=== PATIENT | female | born 1990 | race Caucasian/White ===

== ENCOUNTER 2018-01-23 01:09 | Inpatient (IN) | payer MEDICAID, OTHER ==
[2018-01-23 01:45] VITALS: BMI 30.7
[2018-01-23] MEDS ORDERED: Ondansetron HCl/PF 4 MG/2 ML Vial IVP PRN (02:07)
[2018-01-23] MEDS ORDERED: Promethazine HCl 25 MG/ML VIAL IM PRN (02:07)
[2018-01-23] MEDS ORDERED: Zolpidem Tartrate 5 MG TAB PO PRN (02:07)
[2018-01-23] MEDS ORDERED: Calcium Gluc 4.6 MEQ/10 ML (100 MG/ML) SLOW IVP PRN (02:14)
[2018-01-23] MEDS ORDERED: Magnesium Sulfate 20 GM/WATER 500 ML BAG IVPB SCH (02:15)
[2018-01-23] MEDS ORDERED: Lactated Ringer's 1,000 ML IV SCH (02:15)
--- NOTE | 2018-01-23 02:21 | PDOC.LDHP ---
Labor and Delivery H&P Chief complaint: contractions HPI: 27 yo WF EDC= 03/10/18 c/o UCs since 9 pm, denies bledding or SROM Due date: 03/10/18 Dating criteria: last menstrual period, first trimester ultrasound Grav: 5 Para: 4 Current complications: other (cholestasis, Factor 5, Factor 2) Current medications: pre-jeane vitamins, iron, other (Lovenox 40 mg qd) Previous surgical history: none Allergies/Adverse Reactions: Allergies Allergy/AdvReac Type Severity Reaction Status Date / Time No Known Drug Allergies Allergy Verified 01/23/18 01:30 Social history: none - Physical Exam Vital signs reviewed and normal: yes General: NAD Heart: RRR Lungs: CTAB Abdomen: gravid Extremeties: trace edema FHT: variability present [employer] contractions every: q 2-3 mins - Vaginal Exam cm dilated: 2 Effacement: 50% Station: -2 - OB Labs Blood type: unknown RH: unknown Antibody Screen: unknown HIV: unknown RPR: unknown HEPSAg: unknown 1 hour GCT: unknown 3 hour GTT: unknown GBS: unknown - Assessment 33 weeks PTL breech Factor 5 Leiden cholestasis - Plan Plan: admit to L&D, magnesium for neuroprotection (steroids for FLM)
[2018-01-23] MEDS: Dextrose 5%-Lactated Ringers 1,000 ML IV SCH ×2 (02:30→16:19)
[2018-01-23 02:32] LABS: Hemoglobin 9.7 g/dL (12.0-16.0); Mean Corpuscular Hemoglobin 26.6 pg (27.0-31.0); Mean Corpuscular Volume 80.6 fl (81.0-99.0); Mean Platelet Volume 7.5 fL (7.4-10.4); Platelet Count 234 thou/uL (130-400); RBC Distribution Width 14.3 % (11.5-14.5); Red Blood Cell (RBC) Count 3.66 mill/uL (4.20-5.40)
[2018-01-23] MEDS: Magnesium Sulfate 20 gm/500 ml 20 GM/500 ML BAG IVPB SCH ×3 (02:32→21:33)
[2018-01-23] MEDS: Betamet Acet/Betamet Na Ph 30 MG/5 ML VIAL IM SCH (02:35)
[2018-01-23 02:51] LABS: ALT (SGPT) 18 U/L (8-55); AST (SGOT) 14 U/L (5-34); Albumin 3.5 g/dL (3.5-5.0); Alkaline Phosphatase 224 U/L (40-150); Anion Gap 15 mmol/L (10-20); BUN (Urea Nitrogen) 7 mg/dL (7.0-18.7); Bilirubin, Total 0.2 mg/dL (0.2-1.2); Calc. Creatinine Clearance 171 mL/min (70-130); Calcium 9.4 mg/dL (7.8-10.44); Carbon Dioxide 20 mmol/L (22-29); Chloride 106 mmol/L (98-107); Estimated GFR-MDRD Greater than 90; Globulin 3.3 g/dL (2.4-3.5); Glucose 94 mg/dL (70-105); Potassium 3.5 mmol/L (3.5-5.1); Protein, Total 6.8 g/dL (6.0-8.3); Sodium 137 mmol/L (136-145)
[2018-01-23 02:54] LABS: Bilirubin Negative (Negative); Blood, Urine Negative (Negative); Clarity CLOUDY (Clear); Glucose, Urine (Dipstick) Negative (Negative); Leukocyte Large (Negative); Nitrite Negative (Negative); Protein, Urine (Dipstick) Negative (Neg-Trace); Specific Gravity, Urine 1.012 (1.002-1.036); Urobilinogen 0.2 mg/dL (0.2-1.0)
[2018-01-23 02:56] LABS: Bacteria/HPF 4+ HPF (None Seen); Hyaline Casts/LPF 7-10 HYALINE CAST LPF (0-3 Hyaline); Pathc Cast-AUWi Flag 0.94 (0-2.49); RBC/HPF None Seen HPF (0-3); Squamous Epithelial 0-3 HPF (0-3); WBC/HPF 21-50 HPF (0-3)
[2018-01-23 03:05] LABS: Amphetamine Not Detected (NotDetected); Barbiturates Screen Not Detected (NotDetected); Benzodiazepine Screen Not Detected (NotDetected); Cocaine Metabolite Screen Not Detected (NotDetected); Medtox Control Line Valid? VALID (VALID); Medtox Reader # READER 4; Methadone Not Detected (NotDetected); Methamphetamine Not Detected (NotDetected); Opiate Screen Not Detected (NotDetected); Oxycodone Screen Not Detected (NotDetected); Phencyclidine (PCP) Not Detected (NotDetected); THC/Cannabinoid Screen Not Detected (NotDetected); Tricyclic Screen Not Detected (NotDetected)
[2018-01-23 03:11] LABS: HBSAg Index 0.43 S/CO (0-0.99); HIV (1/2) Antibody/Antigen Non-Reactive (NonReactive); HIV 1/2 INDEX 0.24 S/CO (<1.00); Hep B Surf Ag Non-Reactive S/CO (NonReactive)
[2018-01-23] MEDS ORDERED: CEFAZOLIN 1 GM in Sodium Chloride 0.9% 100 ML IVPB SCH (03:30)
[2018-01-23 04:00] LABS: Syphilis Antibody Nonreactive (Nonreactive); Syphilis Antibody Index 0.07 S/CO (<1.00 Non-Reactive)
[2018-01-23] MEDS ORDERED: CEFAZOLIN 1 GM, Syringe 2.5 ML in Sterile Water 7.5 ML SLOW IVP SCH (04:00)
--- NOTE | 2018-01-23 06:12 | PDOC.LDPN ---
Labor & Delivery Progress Note - Objective Vital signs reviewed and normal: yes General: resting FHT: category 1, variability present [place] contractions every: UCs seen q 2-6 mins - Assessment (1) labor Code(s): O60.00 - LABOR WITHOUT DELIVERY, UNSPECIFIED TRIMESTER Current Visit: Yes Status: Acute (2) Breech presentat-unspec Code(s): O32.1XX0 - MATERNAL CARE FOR BREECH PRESENTATION, UNSP Current Visit : Yes Status: Acute (3) UTI (urinary tract infection) Current Visit: Yes Status: Acute -: Continue Mgso4 1st dose steroids given Cont. Ancef for UTI, urine culture pending
--- NOTE | 2018-01-23 08:41 | ULT ---
PRELIMINARY REPORT/[facility]/EMERGENCY AFTER HOURS PROCEDURE: EXAM: US After First Trimester, Transabdominal EXAM DATE/TIME: 01/23/2018 2:34 AM CLINICAL HISTORY: 27 years old, female; Pain; complicated by abdominal or pelvic pain; Lower; Third trimester ; Gestational age or lmp: 34w5d; ; Patient HX: Pre-term labor TECHNIQUE: Real-time transabdominal obstetrical ultrasound of the maternal pelvis and a second or third trimeste r with image documentation. COMPARISON: No relevant prior studies available. FINDINGS: Fetus: Single Heart rate: 135 bpm Presentation: Breech Placenta: Posterior. No abruption. Amniotic fluid: Normal volume. Anatomy: Visualized anatomy is normal. BIOMETRICS Gestational age by US: GA by US: 34 weeks, 5 days EFW: 2242 grams BPD: 8.6 cm HC: 32.5 cm AC: 30 cm FL: 6.1 cm MATERNAL: Uterus: Unremarkable. No myometrial mass. Cervix: 2.2 cm as visualized. Closed. Free fluid: No free fluid. IMPRESSION: 1. Single viable intrauterine with EGA 34 weeks, 5 days by current US. 2. No acute findings. Thank you for allowing us to participate in the care of your patient. Dictated and Authenticated by: Kylee Ruvalcaba MD 01/23/2018 3:54 AM Central Time ([place] & [place]) FINAL REPORT EMERGENCY AFTER HOURS LIMITED OB ULTRASOUND: Date: 01/23/18 FINDINGS/IMPRESSION: I agree with the preliminary report given by Dr. Kylee Ruvalcaba of [facility]. POS: [facility]
[2018-01-23] MEDS ORDERED: FLU VACC QS2017-18 36 mo. & older 0.5 ML SYRINGE IM ONE (09:00)
--- NOTE | 2018-01-23 09:55 | PDOC.LDPN ---
Labor & Delivery Progress Note - Subjective Subjective: painful contractions (continued same frequency and intensity despite mag, no vb lof. good fm) - Objective Vital signs reviewed and normal: yes General: NAD Uterine fundus: non tender FHT: category 1 [place] contractions every: 3-5min - Assessment (1) Breech presentat-unspec Code(s): O32.1XX0 - MATERNAL CARE FOR BREECH PRESENTATION, UNSP Current Visit : Yes Status: Acute (2) labor Code(s): O60.00 - LABOR WITHOUT DELIVERY, UNSPECIFIED TRIMESTER Current Visit: Yes Status: Acute Qualifiers: labor trimester: third trimester labor delivery status: without delivery Qualified Code(s): O60.03 - labor without delivery, third trimester -: PTL at 33w3d, on SVE change overnight despite continued contractions. Cont Mag until steroids on board then will not be for retocolysis. Probable UTI, on Ancef, Ucx pending. 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 SCDs. Anemia- rx Fe. Cont current care.
[2018-01-23] MEDS: Acetaminophen 325 MG TAB PO PRN ×2 (12:32→23:59)
[2018-01-23] MEDS: Ferrous Sulfate 325 MG TAB PO SCH (19:58)
[2018-01-24] MEDS: Betamet Acet/Betamet Na Ph 30 MG/5 ML VIAL IM SCH (02:00)
--- NOTE | 2018-01-24 08:02 | PDOC.LDPN ---
Labor & Delivery Progress Note - Subjective Subjective: comfortable - Objective Vital signs reviewed and normal: yes General: NAD Uterine fundus: non tender [place] contractions every: 1/hr - Assessment (1) Breech presentat-unspec Code(s): O32.1XX0 - MATERNAL CARE FOR BREECH PRESENTATION, UNSP Current Visit : Yes Status: Acute (2) labor Code(s): O60.00 - LABOR WITHOUT DELIVERY, UNSPECIFIED TRIMESTER Current Visit: Yes Status: Acute Qualifiers: labor trimester: third trimester labor delivery status: without delivery Qualified Code(s): O60.03 - labor without delivery, third trimester -: 27yo at 33w4d with APTL at 2cm. On mag for tocolysis, ctx have stopped. DC Mag and HLIV. s/p BMZ x 2 UTI- presumed based on UA, on ancef, will cont until DC, Ucx pending. FHT Cat 1, ok for q shift monitoring and regular diet. Cholestasis- cont ursodiol, repeat bile acids pending. Heterozygote for prothrombin and factor V- Hold ppx lovenox, apply SCDs. Transfer to floor if stable later today, likely home tomorrow if asx.
[2018-01-24] MEDS: Ferrous Sulfate 325 MG TAB PO SCH ×2 (09:43→22:02)
[2018-01-24] MEDS ORDERED: Prenatal Vitamin 1 TAB PO SCH (11:14)
[2018-01-24 19:39] VITALS: TEMP 98.1
--- NOTE | 2018-01-25 06:40 | PDOC.LDPN ---
Labor & Delivery Progress Note - Subjective Subjective: comfortable - Objective Vital signs reviewed and normal: yes General: NAD [place] contractions every: no UCS seen - Assessment (1) labor Code(s): O60.00 - LABOR WITHOUT DELIVERY, UNSPECIFIED TRIMESTER Current Visit: Yes Status: Acute Qualifiers: labor trimester: third trimester labor delivery status: without delivery Qualified Code(s): O60.03 - labor without delivery, third trimester (2) Breech presentat-unspec Code(s): O32.1XX0 - MATERNAL CARE FOR BREECH PRESENTATION, UNSP Current Visit : Yes Status: Acute (3) UTI (urinary tract infection) Current Visit: Yes Status: Acute -: DC Ancef. Start Keflex 500 mg po QID x7 days. Precautions reviewed in detail.. Restart Lovenox at home. F/u with Dr. Carbone next week.
[2018-01-25 09:16] VITALS: BP 126/80
[2018-01-25] MEDS ORDERED: Cephalexin 250 MG CAP PO SCH (12:00)
--- NOTE | 2018-01-25 13:20 | DIS ---
DATE OF ADMISSION: 01/23/2018 DATE OF DISCHARGE: 01/25/2018 ADMITTING PHYSICIAN: Abdulaziz Chandler M.D. ATTENDING PHYSICIAN: Erin Carbone M.D. BRIEF HISTORY HOSPITAL COURSE: Ms. Michelle is a 27-year-old white now at 33-1/2 weeks who pres ented on 01/23/2018 complaining of regular uterine contractions. She had a complicated hist ory of cholestasis and factor V Leiden deficiency for which she was on the Lovenox. On admission, manny walls was found to be huseyin regularly and her cervix was 2 cm dilated, 50% effaced. Decision was m solo to proceed with magnesium tocolysis and she was also given 2 doses of steroids. Her urine at the time of admission was dirty and she was begun on Ancef. She continued to contract and made no cervical change. She was continued on magnesium for the course of her 2 doses of steroids. Slowly, she stopped huseyin and her magnesium was stopped. Her leanna roid dose was completed and her urine culture returned showing Klebsiella, which was sensitive to all agents. Her Ancef was stopped and the decision was made to proceed with discharge on Keflex 500 mg p.o. 4 times a day. She was asked to follow up with Dr. Carbone in 1 week and she could restart her Lovenox. She voiced understanding of her discharge instructions and was sent home in good condition. ADMITTING DIAGNOSES: 1. A 33-week intrauterine . 2. labor. 3. Urinary tract infection. DISCHARGE DIAGNOSES: 1. A 33-week intrauterine . 2. labor. 3. Urinary tract infection.
== END 2018-01-25 08:50 | disposition home health service (06) | DRG 778 ==
LOC: L&D/OP 01:09 → L&D 02:19
PROVIDERS: ADMIT Student in an Organized Health Care Education/Training Program; ATTEND Student in an Organized Health Care Education/Training Program
DX: O60.03 Preterm labor without delivery, third trimester (principal); D68.51 Activated protein C resistance; K83.1 Obstruction of bile duct; O23.43 Unspecified infection of urinary tract in pregnancy, third trimester; O99.113 Other diseases of the blood and blood-forming organs and certain disorders involving the immune mechanism complicating pregnancy, third trimester; O26.613 Liver and biliary tract disorders in pregnancy, third trimester; O32.1XX0 Maternal care for breech presentation, not applicable or unspecified; O99.013 Anemia complicating pregnancy, third trimester; D64.9 Anemia, unspecified; Z3A.33 33 weeks gestation of pregnancy
CPT/HCPCS: 36415; 51701; 51702; 76815; 80053; 80306; 81001; 82239; 85027; 86762; 86780; 86850; 86870; 86900; 86901; 87077; 87081; 87086; 87186; 87340; 87389; 99285; A4216; J0690; J0702; J3475

== ENCOUNTER 2022-08-23 03:26 | Inpatient (IN) | payer SELFPAY ==
[2022-08-23] MEDS ORDERED: Acetaminophen 325 MG TAB PO PRN (05:15)
[2022-08-23] MEDS ORDERED: Ondansetron ODT 4 MG TAB SL PRN (05:15)
[2022-08-23 05:43] VITALS: BMI 33.6
[2022-08-23] MEDS ORDERED: Acetaminophen 650 MG Suppository PR PRN (06:02)
[2022-08-23] MEDS: Sodium Chloride 0.9% 1,000 ML IV SCH ×2 (06:21→08:17)
[2022-08-23] MEDS ORDERED: Piperacillin/Tazobactam 3.375 GM in Sodium Chloride 0.9% 100 ML IVPB SCH (08:00)
[2022-08-23] MEDS: Ondansetron PF 4 MG/2 ML Vial IVP PRN ×2 (08:21→15:21)
[2022-08-23] MEDS: Morphine 4 MG/ML VIAL SLOW IVP PRN ×2 (08:21→15:21)
[2022-08-23] MEDS ORDERED: Magnevist 469MG/ML 20 ML VIAL ONE (10:24)
[2022-08-23] MEDS: Piperacillin/Tazobactam 3.375 GM in Sodium Chloride 0.9% 100 ML IVPB SCH ×2 (11:47→22:48)
[2022-08-23 15:38] LABS: SARS-CoV-2 NAA Rapid Test Not Detected (NotDetected)
[2022-08-23 16:56] LABS: Mean Corpuscular HGB CONC 32.1 g/dL (32.0-36.0); Mean Corpuscular Hemoglobin 26.9 pg (27.0-31.0); Mean Corpuscular Volume 83.7 fL (78.0-98.0); Mean Platelet Volume 8.5 fL (7.4-10.4); Platelet Count 164 thou/uL (130-400); RBC Distribution Width 12.6 % (11.5-14.5); Red Blood Cell (RBC) Count 3.73 mill/uL (4.20-5.40)
[2022-08-23 17:08] LABS: ALT (SGPT) 25 U/L (8-55); AST (SGOT) 20 U/L (5-34); Albumin 3.5 g/dL (3.5-5.0); Alkaline Phosphatase 72 U/L (40-110); Anion Gap 13 mmol/L (10-20); BUN (Urea Nitrogen) 20 mg/dL (7.0-18.7); Bilirubin, Total 0.9 mg/dL (0.2-1.2); Calc. Creatinine Clearance 46 mL/min (70-130); Calcium 7.6 mg/dL (7.8-10.44); Carbon Dioxide 21 mmol/L (22-29); Chloride 109 mmol/L (98-107); Estimated GFR 28; Globulin 2.7 g/dL (2.4-3.5); Glucose 123 mg/dL (70-105); Magnesium 1.2 mg/dL (1.6-2.6); Phosphorus 3.9 mg/dL (2.3-4.7); Potassium 3.8 mmol/L (3.5-5.1); Protein, Total 6.2 g/dL (6.0-8.3); Sodium 139 mmol/L (136-145)
[2022-08-23 17:24] LABS: Band 26 % (5-11); Eosinophils 1 % (0-10); Hypochromia SLIGHT = 6-15 cells (100X) (0-5/hpf); Lymphocytes 3 % (21-51); MDiff Complete? YES; Metamyelocyte 12 % (0-0); Monocytes 1 % (0-10); Myelocyte 1 % (0-0); Neutrophil 56 % (42-75); Platelet Morphology Comment Appears Adequate; Polychromasia SLIGHT = 2-3 cells (100X) (0-2/hpf); Vacuoles SLIGHT
[2022-08-23] MEDS ORDERED: B & O ONE (18:45)
[2022-08-23] MEDS ORDERED: Iopamidol 15 ML ONE (18:45)
[2022-08-23] MEDS ORDERED: fentaNYL Citrate/PF 100 MCG/2 ML SYRINGE ONE (18:48)
[2022-08-23] MEDS ORDERED: Midazolam HCl 2 mg/2 ml Vial ONE (18:48)
[2022-08-23] MEDS ORDERED: HYDROmorphone 2 MG/ML VIAL ONE (19:25)
[2022-08-23] MEDS ORDERED: Promethazine HCl 25 MG/ML VIAL ONE (19:25)
[2022-08-23] MEDS ORDERED: Lidocaine 2% Jelly 5 ML TUBE ONE (19:26)
[2022-08-23] MEDS ORDERED: SUGAMMADEX SODIUM 200 MG/2 ML VIAL ONE (19:26)
[2022-08-23] MEDS ORDERED: PROPOFOL 200 MG/20 ML VIAL ONE (19:38)
[2022-08-23] MEDS ORDERED: Ondansetron PF 4 MG/2 ML Vial ONE (19:38)
[2022-08-23] MEDS ORDERED: Dexamethasone 20 MG/5 ML VIAL ONE (19:38)
[2022-08-23] MEDS ORDERED: Succinylcholine 200 MG/10 ml SYRINGE FS ONE (19:38)
[2022-08-23] MEDS ORDERED: Metoclopramide HCl 10 MG/2 ML VIAL ONE (19:38)
[2022-08-23] MEDS ORDERED: Promethazine HCl 25 MG/ML VIAL IVPB PRN (20:27)
[2022-08-23] MEDS ORDERED: Promethazine HCl 25 MG/ML VIAL IM PRN (20:27)
[2022-08-23] MEDS ORDERED: Ondansetron HCl/PF 4 MG/2 ML Vial IVP PRN (20:27)
[2022-08-24] MEDS: Piperacillin/Tazobactam 3.375 GM in Sodium Chloride 0.9% 100 ML IVPB SCH ×3 (04:04→20:58)
[2022-08-24 06:03] LABS: Anion Gap 13 mmol/L (10-20); BUN (Urea Nitrogen) 25 mg/dL (7.0-18.7); Calc. Creatinine Clearance 59 mL/min (70-130); Calcium 7.8 mg/dL (7.8-10.44); Carbon Dioxide 22 mmol/L (22-29); Chloride 108 mmol/L (98-107); Estimated GFR 37; Glucose 158 mg/dL (70-105); Potassium 3.8 mmol/L (3.5-5.1); Sodium 139 mmol/L (136-145)
[2022-08-24 06:37] LABS: Hemoglobin 9.6 g/dL (12.0-16.0); Mean Corpuscular HGB CONC 31.9 g/dL (32.0-36.0); Mean Corpuscular Volume 84.6 fL (78.0-98.0); Platelet Count 127 thou/uL (130-400); RBC Distribution Width 12.7 % (11.5-14.5); Red Blood Cell (RBC) Count 3.57 mill/uL (4.20-5.40)
[2022-08-24 06:38] LABS: Band 47 % (5-11); Hypochromia SLIGHT = 6-15 cells (100X) (0-5/hpf); Lymphocytes 3 % (21-51); MDiff Complete? YES; Monocytes 5 % (0-10); Neutrophil 45 % (42-75); Platelet Morphology Comment Appears Adequate
[2022-08-24] MEDS ORDERED: traMADol HCl 50 MG TAB PO PRN (12:21)
[2022-08-24] MEDS ORDERED: Magnesium Sulfate In Water 4 GM in Premix Bag 1 BAG IVPB SCH (13:15)
[2022-08-24] MEDS ORDERED: Furosemide 20 MG/2 ML VIAL SLOW IVP SCH (19:30)
[2022-08-24] MEDS: HYDROcodone/Acetaminophen 5/325 mg Tablet PO PRN (21:11)
[2022-08-24 22:32] LABS: Lactic Acid 1.4 mmol/L (0.5-2.2)
[2022-08-24 22:49] LABS: Hemoglobin 10.8 g/dL (12.0-16.0); Mean Corpuscular HGB CONC 32.3 g/dL (32.0-36.0); Mean Corpuscular Hemoglobin 27.2 pg (27.0-31.0); Mean Corpuscular Volume 84.3 fL (78.0-98.0); Mean Platelet Volume 8.5 fL (7.4-10.4); Platelet Count 164 thou/uL (130-400); RBC Distribution Width 12.7 % (11.5-14.5); Red Blood Cell (RBC) Count 3.95 mill/uL (4.20-5.40); White Blood Cell (WBC) Count 22.8 thou/uL (4.8-10.8)
[2022-08-24 23:12] LABS: Band 18 % (5-11); Lymphocytes 7 % (21-51); MDiff Complete? YES; Metamyelocyte 1 % (0-0); Monocytes 3 % (0-10); Neutrophil 70 % (42-75); Platelet Morphology Comment Appears Adequate; RBC Morphology Normal
[2022-08-25] MEDS: Ibuprofen 200 MG TAB PO PRN ×3 (01:53→20:32)
[2022-08-25] MEDS: Piperacillin/Tazobactam 3.375 GM in Sodium Chloride 0.9% 100 ML IVPB SCH ×3 (04:16→22:00)
[2022-08-25 05:58] LABS: ALT (SGPT) 17 U/L (8-55); AST (SGOT) 21 U/L (5-34); Albumin 3.4 g/dL (3.5-5.0); Alkaline Phosphatase 85 U/L (40-110); Anion Gap 13 mmol/L (10-20); BUN (Urea Nitrogen) 21 mg/dL (7.0-18.7); Bilirubin, Total 0.6 mg/dL (0.2-1.2); Calc. Creatinine Clearance 90 mL/min (70-130); Calcium 8.3 mg/dL (7.8-10.44); Carbon Dioxide 22 mmol/L (22-29); Chloride 105 mmol/L (98-107); Estimated GFR 62; Globulin 3.4 g/dL (2.4-3.5); Glucose 106 mg/dL (70-105); Magnesium 2.7 mg/dL (1.6-2.6); Protein, Total 6.8 g/dL (6.0-8.3); Sodium 137 mmol/L (136-145)
[2022-08-25 06:44] LABS: Band 12 % (5-11); Hemoglobin 9.8 g/dL (12.0-16.0); Lymphocytes 10 % (21-51); MDiff Complete? YES; Mean Corpuscular HGB CONC 32.3 g/dL (32.0-36.0); Mean Corpuscular Hemoglobin 27.2 pg (27.0-31.0); Metamyelocyte 2 % (0-0); Monocytes 2 % (0-10); Neutrophil 74 % (42-75); Platelet Count 152 thou/uL (130-400); Platelet Morphology Comment Appears Adequate; RBC Distribution Width 12.6 % (11.5-14.5); RBC Morphology Normal; Red Blood Cell (RBC) Count 3.61 mill/uL (4.20-5.40); White Blood Cell (WBC) Count 16.4 thou/uL (4.8-10.8)
[2022-08-25] MEDS: Famotidine 20 MG TAB PO SCH (08:07)
[2022-08-25] MEDS: Potassium Chloride 20 MEQ TAB PO SCH ×2 (08:07→16:39)
[2022-08-25] MEDS: HYDROcodone/Acetaminophen 5/325 mg Tablet PO PRN ×3 (08:08→18:38)
[2022-08-25] MEDS ORDERED: Furosemide 20 MG/2 ML VIAL SLOW IVP SCH (09:45)
[2022-08-25] MEDS ORDERED: Iopamidol-370 76% 500 ML 1 ML ONE (13:12)
[2022-08-25] MEDS: Doxycycline 100 MG in Sodium Chloride 0.9% 100 ML IVPB SCH (20:26)
[2022-08-25] MEDS ORDERED: Doxycycline 100 MG in Syringe 0 ML IVPB SCH (21:00)
[2022-08-26] MEDS: HYDROcodone/Acetaminophen 5/325 mg Tablet PO PRN ×2 (03:11→18:25)
[2022-08-26] MEDS: Piperacillin/Tazobactam 3.375 GM in Sodium Chloride 0.9% 100 ML IVPB SCH ×3 (03:12→20:28)
[2022-08-26 05:46] LABS: ALT (SGPT) 17 U/L (8-55); AST (SGOT) 15 U/L (5-34); Albumin 3.2 g/dL (3.5-5.0); Alkaline Phosphatase 94 U/L (40-110); Anion Gap 15 mmol/L (10-20); BUN (Urea Nitrogen) 15 mg/dL (7.0-18.7); Calc. Creatinine Clearance 135 mL/min (70-130); Calcium 8.9 mg/dL (7.8-10.44); Carbon Dioxide 21 mmol/L (22-29); Chloride 107 mmol/L (98-107); Estimated GFR 102; Globulin 3.3 g/dL (2.4-3.5); Glucose 80 mg/dL (70-105); Magnesium 1.8 mg/dL (1.6-2.6); Phosphorus 2.5 mg/dL (2.3-4.7); Potassium 3.7 mmol/L (3.5-5.1); Protein, Total 6.5 g/dL (6.0-8.3); Sodium 139 mmol/L (136-145)
[2022-08-26] MEDS ORDERED: hydrALAZINE 20 MG/ML VIAL SLOW IVP PRN (06:20)
[2022-08-26 06:28] LABS: Band 14 % (5-11); Hemoglobin 9.6 g/dL (12.0-16.0); Hypochromia SLIGHT = 6-15 cells (100X) (0-5/hpf); Lymphocytes 16 % (21-51); MDiff Complete? YES; Mean Corpuscular HGB CONC 31.5 g/dL (32.0-36.0); Mean Corpuscular Hemoglobin 26.7 pg (27.0-31.0); Mean Corpuscular Volume 84.7 fL (78.0-98.0); Mean Platelet Volume 9.2 fL (7.4-10.4); Monocytes 8 % (0-10); Neutrophil 62 % (42-75); Platelet Count 161 thou/uL (130-400); Platelet Morphology Comment Appears Adequate; RBC Distribution Width 12.9 % (11.5-14.5); Red Blood Cell (RBC) Count 3.61 mill/uL (4.20-5.40); White Blood Cell (WBC) Count 11.2 thou/uL (4.8-10.8)
[2022-08-26] MEDS ORDERED: ALPRAZolam 0.5 MG TAB PO SCH (09:00)
[2022-08-26] MEDS ORDERED: FLU VACC QS2022-23(6MOS UP)/PF 60 MCG/0.5 ML SYRINGE IM ONE (09:00)
[2022-08-26] MEDS: Lisinopril 10 MG TAB PO SCH (10:06)
[2022-08-26] MEDS ORDERED: Metoclopramide HCl 10 MG/2 ML VIAL IVP PRN (10:13)
[2022-08-26] MEDS: Doxycycline 100 MG in Sodium Chloride 0.9% 100 ML IVPB SCH ×2 (11:09→20:28)
[2022-08-26] MEDS: Famotidine 20 MG TAB PO SCH (11:09)
[2022-08-26] MEDS: ALPRAZolam 1 MG TAB PO SCH (20:27)
[2022-08-27 05:07] LABS: Anion Gap 15 mmol/L (10-20); BUN (Urea Nitrogen) 12 mg/dL (7.0-18.7); Calc. Creatinine Clearance 132 mL/min (70-130); Carbon Dioxide 20 mmol/L (22-29); Chloride 102 mmol/L (98-107); Potassium 3.3 mmol/L (3.5-5.1); Sodium 134 mmol/L (136-145)
[2022-08-27 05:08] LABS: ALT (SGPT) 17 U/L (8-55); AST (SGOT) 15 U/L (5-34); Albumin 3.3 g/dL (3.5-5.0); Alkaline Phosphatase 140 U/L (40-110); Bilirubin, Total 1.4 mg/dL (0.2-1.2); Calcium 8.9 mg/dL (7.8-10.44); Estimated GFR 99; Globulin 3.7 g/dL (2.4-3.5); Glucose 78 mg/dL (70-105); Magnesium 1.6 mg/dL (1.6-2.6); Phosphorus 2.6 mg/dL (2.3-4.7)
[2022-08-27] MEDS: HYDROcodone/Acetaminophen 5/325 mg Tablet PO PRN ×2 (05:12→14:43)
[2022-08-27] MEDS: Piperacillin/Tazobactam 3.375 GM in Sodium Chloride 0.9% 100 ML IVPB SCH (05:13)
[2022-08-27 05:29] LABS: Band 8 % (5-11); Eosinophils 1 % (0-10); Hemoglobin 10.3 g/dL (12.0-16.0); Lymphocytes 14 % (21-51); MDiff Complete? YES; Mean Corpuscular HGB CONC 31.6 g/dL (32.0-36.0); Mean Corpuscular Hemoglobin 26.5 pg (27.0-31.0); Mean Corpuscular Volume 83.6 fL (78.0-98.0); Mean Platelet Volume 9.1 fL (7.4-10.4); Monocytes 11 % (0-10); Neutrophil 66 % (42-75); Platelet Count 187 thou/uL (130-400); Platelet Morphology Comment Appears Adequate; RBC Distribution Width 13.1 % (11.5-14.5); RBC Morphology Normal; Red Blood Cell (RBC) Count 3.88 mill/uL (4.20-5.40); Toxic Granulation SLIGHT; Vacuoles SLIGHT; White Blood Cell (WBC) Count 11.5 thou/uL (4.8-10.8)
[2022-08-27] MEDS: Lisinopril 10 MG TAB PO SCH (10:10)
[2022-08-27] MEDS: cefTRIAXone\\ROCEPHIN 1 GM in Sodium Chloride 0.9% 100 ML IVPB SCH (10:10)
[2022-08-27] MEDS: Famotidine 20 MG TAB PO SCH (10:10)
[2022-08-27] MEDS: Doxycycline 100 MG in Sodium Chloride 0.9% 100 ML IVPB SCH ×2 (10:11→20:56)
[2022-08-27] MEDS ORDERED: Magnesium 2 GM/50 ML(in water) 2 GM in Premix Bag 1 BAG IVPB SCH (13:15)
[2022-08-27 20:06] LABS: Bacteria/HPF None Seen HPF (None Seen); Squamous Epithelial 0-3 HPF (0-3)
[2022-08-27 20:19] LABS: Bilirubin Negative (Negative); Blood, Urine Negative (Negative); Clarity Clear (Clear); Glucose, Urine (Dipstick) Normal (Negative); Ketone, Urine 100 mg/dL (Negative); Leukocyte 25 Leu/uL (Negative); Nitrite Negative (Negative); Protein, Urine (Dipstick) 30 mg/dL (Neg-Trace); Specific Gravity, Urine 1.012 (1.002-1.036); Urobilinogen Normal mg/dL (Less than 2)
[2022-08-27] MEDS: Acetaminophen 325 MG TAB PO PRN (20:24)
[2022-08-27] MEDS: ALPRAZolam 1 MG TAB PO SCH (20:34)
[2022-08-28 04:25] LABS: ALT (SGPT) 21 U/L (8-55); AST (SGOT) 21 U/L (5-34); Albumin 3.3 g/dL (3.5-5.0); Alkaline Phosphatase 156 U/L (40-110); Anion Gap 16 mmol/L (10-20); BUN (Urea Nitrogen) 12 mg/dL (7.0-18.7); Bilirubin, Total 1.1 mg/dL (0.2-1.2); Calc. Creatinine Clearance 143 mL/min (70-130); Calcium 8.8 mg/dL (7.8-10.44); Carbon Dioxide 19 mmol/L (22-29); Chloride 103 mmol/L (98-107); Estimated GFR 108; Globulin 3.8 g/dL (2.4-3.5); Glucose 89 mg/dL (70-105); Potassium 3.3 mmol/L (3.5-5.1); Protein, Total 7.1 g/dL (6.0-8.3); Sodium 135 mmol/L (136-145)
[2022-08-28 04:33] LABS: Hemoglobin 10.2 g/dL (12.0-16.0); Mean Corpuscular HGB CONC 31.6 g/dL (32.0-36.0); Mean Corpuscular Hemoglobin 26.4 pg (27.0-31.0); Mean Corpuscular Volume 83.6 fL (78.0-98.0); Mean Platelet Volume 8.6 fL (7.4-10.4); Platelet Count 230 thou/uL (130-400); Red Blood Cell (RBC) Count 3.85 mill/uL (4.20-5.40); White Blood Cell (WBC) Count 12.5 thou/uL (4.8-10.8)
[2022-08-28 04:34] LABS: Band 12 % (5-11); Hypochromia SLIGHT = 6-15 cells (100X) (0-5/hpf); Lymphocytes 13 % (21-51); MDiff Complete? YES; Monocytes 11 % (0-10); Neutrophil 64 % (42-75); Platelet Morphology Comment Appears Adequate
[2022-08-28] MEDS: Potassium Chloride 20 MEQ TAB PO SCH ×2 (07:51→16:38)
[2022-08-28] MEDS: cefTRIAXone\\ROCEPHIN 1 GM in Sodium Chloride 0.9% 100 ML IVPB SCH (07:51)
[2022-08-28] MEDS: Famotidine 20 MG TAB PO SCH (07:51)
[2022-08-28] MEDS: HYDROcodone/Acetaminophen 5/325 mg Tablet PO PRN (07:51)
[2022-08-28] MEDS: Carvedilol 6.25 MG TAB PO SCH ×2 (07:52→16:38)
[2022-08-28] MEDS: Lisinopril 10 MG TAB PO SCH (07:52)
[2022-08-28] MEDS: Doxycycline 100 MG in Sodium Chloride 0.9% 100 ML IVPB SCH ×2 (11:56→21:47)
[2022-08-28] MEDS ORDERED: cefTRIAXone\\ROCEPHIN 1 GM in Sodium Chloride 0.9% 100 ML IVPB SCH (14:00)
[2022-08-28] MEDS: Acetaminophen 325 MG TAB PO PRN ×2 (16:38→21:45)
[2022-08-28 17:01] LABS: #Basophils 0.1 thou/uL (0.0-0.2); #Eosinphils 0.2 thou/uL (0.0-0.7); #Lymphocytes 1.8 thou/uL (1.20-3.40); #Monocytes 0.9 thou/uL (0.11-0.59); #Neutrophils 8.6 thou/uL (1.40-6.50); %Basophils 1.3 % (0.0-1.0); %Eosinophils 1.3 % (0.0-10.0); %Lymphocytes 15.4 % (21.0-51.0); %Monocytes 7.6 % (0.0-10.0); %Neutrophils 74.5 % (42.0-75.0); Hemoglobin 10.8 g/dL (12.0-16.0); Mean Corpuscular HGB CONC 31.9 g/dL (32.0-36.0); Mean Corpuscular Hemoglobin 26.8 pg (27.0-31.0); Mean Corpuscular Volume 83.9 fL (78.0-98.0); Mean Platelet Volume 8.8 fL (7.4-10.4); Platelet Count 269 thou/uL (130-400); RBC Distribution Width 13.1 % (11.5-14.5); Red Blood Cell (RBC) Count 4.01 mill/uL (4.20-5.40); White Blood Cell (WBC) Count 11.5 thou/uL (4.8-10.8)
[2022-08-28 17:20] LABS: Anion Gap 17 mmol/L (10-20); BUN (Urea Nitrogen) 13 mg/dL (7.0-18.7); Calc. Creatinine Clearance 143 mL/min (70-130); Calcium 9.1 mg/dL (7.8-10.44); Carbon Dioxide 18 mmol/L (22-29); Chloride 105 mmol/L (98-107); Estimated GFR 110; Glucose 77 mg/dL (70-105); Potassium 3.6 mmol/L (3.5-5.1); Sodium 136 mmol/L (136-145)
[2022-08-28] MEDS: ALPRAZolam 1 MG TAB PO SCH (21:47)
[2022-08-29 05:25] LABS: Phosphorus 2.8 mg/dL (2.3-4.7)
[2022-08-29 05:27] LABS: ALT (SGPT) 40 U/L (8-55); AST (SGOT) 41 U/L (5-34); Albumin 3.4 g/dL (3.5-5.0); Alkaline Phosphatase 174 U/L (40-110); Anion Gap 16 mmol/L (10-20); BUN (Urea Nitrogen) 13 mg/dL (7.0-18.7); Bilirubin, Total 0.6 mg/dL (0.2-1.2); Calc. Creatinine Clearance 149 mL/min (70-130); Calcium 9.1 mg/dL (7.8-10.44); Carbon Dioxide 17 mmol/L (22-29); Chloride 106 mmol/L (98-107); Estimated GFR 115; Globulin 3.9 g/dL (2.4-3.5); Glucose 87 mg/dL (70-105); Magnesium 1.7 mg/dL (1.6-2.6); Potassium 3.6 mmol/L (3.5-5.1); Protein, Total 7.3 g/dL (6.0-8.3); Sodium 135 mmol/L (136-145)
[2022-08-29 05:31] LABS: Band 1 % (5-11); Eosinophils 3 % (0-10); Hemoglobin 10.1 g/dL (12.0-16.0); Lymphocytes 18 % (21-51); MDiff Complete? YES; Mean Corpuscular HGB CONC 31.7 g/dL (32.0-36.0); Mean Corpuscular Hemoglobin 26.7 pg (27.0-31.0); Mean Corpuscular Volume 84.4 fL (78.0-98.0); Mean Platelet Volume 8.4 fL (7.4-10.4); Metamyelocyte 2 % (0-0); Monocytes 4 % (0-10); Myelocyte 1 % (0-0); Neutrophil 70 % (42-75); Platelet Count 305 thou/uL (130-400); Platelet Morphology Comment Appears Adequate; RBC Distribution Width 13.1 % (11.5-14.5); RBC Morphology Normal; Red Blood Cell (RBC) Count 3.79 mill/uL (4.20-5.40); White Blood Cell (WBC) Count 15.3 thou/uL (4.8-10.8)
[2022-08-29] MEDS: Carvedilol 6.25 MG TAB PO SCH ×2 (09:08→16:48)
[2022-08-29] MEDS: Doxycycline 100 MG in Sodium Chloride 0.9% 100 ML IVPB SCH (09:08)
[2022-08-29] MEDS: Famotidine 20 MG TAB PO SCH (09:09)
[2022-08-29] MEDS: Lisinopril 10 MG TAB PO SCH (09:09)
[2022-08-29] MEDS ORDERED: cefTRIAXone\\ROCEPHIN 2 GM in Sodium Chloride 0.9% 100 ML IVPB SCH (14:00)
[2022-08-29 15:50] VITALS: BP 157/92; TEMP 99
[2022-08-29] MEDS ORDERED: Cephalexin 250 MG CAP PO SCH (18:00)
== END 2022-08-29 19:10 | disposition home or self-care (01) | DRG 853 ==
LOC: SJJU 03:26 → OBSVTOIN 08-24 13:38 → 2NO 08-25 14:19
PROVIDERS: ADMIT Student in an Organized Health Care Education/Training Program; ATTEND Internal Medicine
PROC: 0T768DZ Dilation of Right Ureter with Intraluminal Device, Via Natural or Artificial Opening Endoscopic (ICD-10-PCS; principal; 2022-08-24)
PROC: BT1D1ZZ Fluoroscopy of Right Kidney, Ureter and Bladder using Low Osmolar Contrast (ICD-10-PCS; 2022-08-24)
PROC: 3E03329 Introduction of Other Anti-infective into Peripheral Vein, Percutaneous Approach (ICD-10-PCS; 2022-08-24)
DX: A41.9 Sepsis, unspecified organism (principal); J18.9 Pneumonia, unspecified organism; J96.01 Acute respiratory failure with hypoxia; D68.2 Hereditary deficiency of other clotting factors; N13.6 Pyonephrosis; N17.9 Acute kidney failure, unspecified; J98.11 Atelectasis; R65.20 Severe sepsis without septic shock; Z20.822 Contact with and (suspected) exposure to COVID-19; D32.0 Benign neoplasm of cerebral meninges; I10 Essential (primary) hypertension; F41.0 Panic disorder [episodic paroxysmal anxiety]; Z87.442 Personal history of urinary calculi
CPT/HCPCS: 36415; 70450; 70553; 71045; 71275; 74176; 74420; 76770; 80048; 80053; 81001; 83605; 83735; 83880; 84100; 84145; 85025; 85379; 87040; 87077; 87081; 87086; 87186; 93005; 93010; 93306; 94640; 96374; 96375; 96376; A9579; C2617; G0378; J0360; J0696; J1100; J1170; J1940; J2250; J2270; J2405; J2543; J2550; J2704; J2765; J3475; J3490; J7050; J7620; Q9967; U0002